=== PATIENT | female | born 1955 | race Caucasian/White ===

== ENCOUNTER 2017-01-13 17:14 | Inpatient (IN) | payer MEDICARE, OTHER ==
[~2017-01-13] VITALS: Ht 162.6 cm; Wt 135.8 kg
[~2017-01-13 17:14] MED LIST: ASPIRIN CHEWABL81 MG PO; BUTALBITAL-ASA1 EACH PO; CATAPRES 0.1MG0.1 MG PO; CLARITIN 10MG T10 MG PO; COLACE100 MG PO; DILTIAZEM 24HR120 M1 PO; DULOXETINE HCL60 MG PO; ESSENTIAL DAIL1 EACH PO; FERROUS SULFAT325 M1 PO; HYDRALAZINE HCL50 MG PO; LEVAQUIN500 MG PO; LEVEMIR FL100 UNIT/1 SQ; LEVOTHYROXINE100 MCG PO; LEVOTHYROXINE125 MCG PO; LIPITOR TAB 2020 MG PO; LISINOPRIL5 MG PO; MECLIZINE HCL25 MG PO; MONTELUKAST SOD10 MG PO; NEURONTIN 300300 MG PO; OXYCODONE HCL10 MG PO; PHENERGAN 25 MG25 M1 PO; PROMETHAZINE HC25 M1 PO; PROTONIX40 MG PO; TRAZODONE HCL50 MG PO
[2017-01-13 18:39] LABS: RED BLOOD COUNT 2.87 M/UL (4.00-5.10); WHITE BLOOD COUNT 11.9 K/UL (4.5-11.0)
[2017-01-14] MEDS ORDERED: CALCIUM ACETAT667 MG PO (02:34)
[2017-01-14] MEDS ORDERED: CARTIA XT240 MG PO (02:36)
[2017-01-14] MEDS ORDERED: CATAPRES TTS P TOP (02:38)
[2017-01-14] MEDS ORDERED: NEURONTIN 100100 MG PO (02:41)
[2017-01-14] MEDS ORDERED: LINZESS290 MCG PO (02:51)
[2017-01-14] MEDS ORDERED: NOVOLOG100 UNIT/1 SC (02:54)
[2017-01-14] MEDS ORDERED: OXYCODONE-ACET1 EACH PO (02:58)
[2017-01-14] MEDS ORDERED: SYMBICORT 160-1 INHA INH (03:00)
[2017-01-14] MEDS ORDERED: PROAIR HFA8.5 GM INH (03:04)
[2017-01-14 04:14] LABS: HEMOGLOBIN 7.9 gm/dl (12.3-15.3); RED BLOOD COUNT 2.85 M/UL (4.00-5.10); WHITE BLOOD COUNT 10.9 K/UL (4.5-11.0)
[2017-01-14] MEDS ORDERED: FLONASE 0.05% N16 GM (05:07)
[2017-01-14 10:00] LABS: ACINETOBACTER BAUMANNII Not Detected (Negative); CANDIDA ALBICANS Not Detected (Negative); CANDIDA KRUSEI Not Detected (Negative); CANDIDA TROPICALIS Not Detected (Negative); ENTEROCOCCUS Not Detected (Negative); ESCHERICHIA COLI Not Detected (Negative); HAEMOPHILUS INFLUENZAE Not Detected (Negative); KLEBSIELLA OXYTOCA Not Detected (Negative); KLEBSIELLA PNEUMONIAE Not Detected (Negative); KPC-CARBAPENEM-RESISTANCE GENE Not Detected (Negative); PROTEUS Not Detected (Negative); PSEUDOMONAS AERUGINOSA Not Detected (Negative); SERRATIA MARCESANS Not Detected (Negative); STREP AGALACTIAE (GROUP B) Not Detected (Negative); STREP PYOGENES (GROUP A) Not Detected (Negative); STREPTOCOCCUS Not Detected (Negative); vanA/B (VANCOMYCIN RESIST GENE Not Detected (Negative)
[2017-01-14 11:12] LABS: STAPHYLOCOCCUS DETECTED (Negative); STAPHYLOCOCCUS AUREUS DETECTED (Negative); mecA (METHICILLIN RESIST GENE DETECTED (Negative)
--- NOTE | 2017-01-16 12:52 | NUR ---
RECEIVED REPORT PATIENT AMBULATE WHEN SHE HAD SHOWER THIS MORNING. APPEARS PATIENT EWELINA WELL
--- NOTE | 2017-01-17 10:26 | NUR ---
RECEIVED REPORT UNABLE TO PERFORM ENEIDA PROCEDURE TODAY, PATIENT WILL RESUME DIET @ 11 AM. PATIENT KNOWLEDGEABLE OF THE NPO UNTIL 11 AM, LAYING IN BED AWAKE AND ALERT, 02 2L IN PLACED SAT 97 %, VITALS SIGN WNL. DENIES PAIN AT THIS TIME
--- NOTE | 2017-01-17 10:28 | NUR ---
NOTIFIED OR C/O RODDY R/T ANESTHESIOLOGIST. VERB WILL RELAY MESSAGE TO DR. WANG
[2017-01-18 05:06] LABS: HEMOGLOBIN 7.6 gm/dl (12.3-15.3); RED BLOOD COUNT 2.72 M/UL (4.00-5.10); WHITE BLOOD COUNT 9.7 K/UL (4.5-11.0)
--- NOTE | 2017-01-18 08:09 | NUR ---
NO VANC LEVEL NOT AVAILABLE, SPOKEN WITH PHARMACIST AND REORDER VANC LEVEL DUE TODAY
--- NOTE | 2017-01-18 11:58 | NUR ---
PATIENT BACK ON THE FLOOR AT 1114, SLEEPY BUT EASLIY AROUSABLE, OPEN EYES WHEN SPOKEN TO, ORIENTED X 3.
[2017-01-19 04:39] LABS: WHITE BLOOD COUNT 9.3 K/UL (4.5-11.0)
[2017-01-19 04:48] LABS: RED BLOOD COUNT 2.44 M/UL (4.00-5.10)
[2017-01-20 14:40] LABS: HEMOGLOBIN 7.4 gm/dl (12.3-15.3); RED BLOOD COUNT 2.64 M/UL (4.00-5.10); WHITE BLOOD COUNT 10.8 K/UL (4.5-11.0)
[2017-01-21 07:17] LABS: HEMOGLOBIN 7.1 gm/dl (12.3-15.3); RED BLOOD COUNT 2.51 M/UL (4.00-5.10); WHITE BLOOD COUNT 11.2 K/UL (4.5-11.0)
[2017-01-22 07:34] LABS: RED BLOOD COUNT 2.42 M/UL (4.00-5.10); WHITE BLOOD COUNT 10.1 K/UL (4.5-11.0)
[2017-01-22 07:38] LABS: HEMOGLOBIN 6.9 gm/dl (12.3-15.3)
[2017-01-22 16:41] LABS: HEMOGLOBIN 7.6 gm/dl (12.3-15.3); WHITE BLOOD COUNT 9.7 K/UL (4.5-11.0)
[2017-01-22 16:42] LABS: RED BLOOD COUNT 2.7 M/UL (4.00-5.10)
[2017-01-23 04:48] LABS: HEMOGLOBIN 7.6 gm/dl (12.3-15.3); RED BLOOD COUNT 2.7 M/UL (4.00-5.10); WHITE BLOOD COUNT 9.2 K/UL (4.5-11.0)
[2017-01-23 17:24] LABS: ADENOVIRUS F 40/41 Not Detected (Negative); ASTROVIRUS Not Detected (Negative); CAMPYLOBACTER Not Detected (Negative); CLOSTRIDIUM DIFFICILE TOX A/B Not Detected (Negative); CRYPTOSPORIDIUM Not Detected (Negative); E.COLI 0157 Not Detected (Negative); ENTAMOEBA HISTOLYTICA Not Detected (Negative); ENTEROAGGREGATIVE E.COLI (EAEC Not Detected (Negative); ENTEROTOXIGENIC E.COLI (ETEC) Not Detected (Negative); GIARDIA LAMBLIA Not Detected (Negative); NOROVIRUS GI/GII Not Detected (Negative); PLESIOMONAS SHIGELLOIDES Not Detected (Negative); ROTOVIRUS A Not Detected (Negative); SALMONELLA Not Detected (Negative); SAPOVIRUS Not Detected (Negative); SHIG/ENTEROINVAS.ECOLI (EIEC) Not Detected (Negative); SHIGA-LIK TOX.PRO.E.COLI (STEC Not Detected (Negative); VIBRIO Not Detected (Negative); VIBRIO CHOLERAE Not Detected (Negative); YERSINIA ENTEROCOLITICA Not Detected (Negative)
--- NOTE | 2017-01-23 18:48 | NUR ---
DR. LA MADE HIS ROUNDS EARLIER AND AWARE OF ABNORMAL LAB VALUES.
--- NOTE | 2017-01-23 18:49 | NUR ---
DR. DAY WAS MAKING ROUNDS AND REPORTED PATIENT LABS AND CONDITION.
[2017-01-24 04:19] LABS: RED BLOOD COUNT 2.5 M/UL (4.00-5.10); WHITE BLOOD COUNT 8.2 K/UL (4.5-11.0)
[2017-01-24 11:26] LABS: ENTEROPATHOGENIC E.COLI (EPEC) DETECTED (Negative)
[2017-01-25 06:06] LABS: HEMOGLOBIN 8.2 gm/dl (12.3-15.3)
[2017-01-27] MEDS ORDERED: LACTINEX TABLET1 EA PO (17:23)
== END 2017-01-27 18:47 | disposition home or self-care (01) | DRG 871 ==
LOC: ER1 17:14 → MED SURG 4 21:50 → ZEROF 21:50 → MED SURG 4 01-14 01:08
PROVIDERS: Emergency Medicine; Family Medicine; Internal Medicine; Internal Medicine Nephrology; ADMIT Internal Medicine
PROC: 5A1D60Z (ICD-10-PCS; 2017-01-15)
PROC: B246ZZ4 Ultrasonography of Right and Left Heart, Transesophageal (ICD-10-PCS; principal; 2017-01-18)
PROC: 30233H1 Transfusion of Nonautologous Whole Blood into Peripheral Vein, Percutaneous Approach (ICD-10-PCS; 2017-01-22)
PROC: 30233H1 Transfusion of Nonautologous Whole Blood into Peripheral Vein, Percutaneous Approach (ICD-10-PCS; 2017-01-24)
DX: A41.02 Sepsis due to Methicillin resistant Staphylococcus aureus (principal); N18.6 End stage renal disease; I50.32 Chronic diastolic (congestive) heart failure; Z68.41 Body mass index [BMI] 40.0-44.9, adult; I12.0 Hypertensive chronic kidney disease with stage 5 chronic kidney disease or end stage renal disease; R74.9 Abnormal serum enzyme level, unspecified; Z99.2 Dependence on renal dialysis; E11.22 Type 2 diabetes mellitus with diabetic chronic kidney disease; M10.9 Gout, unspecified; E78.5 Hyperlipidemia, unspecified; E03.9 Hypothyroidism, unspecified; E11.40 Type 2 diabetes mellitus with diabetic neuropathy, unspecified; K21.9 Gastro-esophageal reflux disease without esophagitis; K52.9 Noninfective gastroenteritis and colitis, unspecified; E66.9 Obesity, unspecified; H91.92 Unspecified hearing loss, left ear; E66.01 Morbid (severe) obesity due to excess calories; D63.1 Anemia in chronic kidney disease; E87.6 Hypokalemia; K59.09 Other constipation; D64.89 Other specified anemias; B37.3 Candidiasis of vulva and vagina; Z86.73 Personal history of transient ischemic attack (TIA), and cerebral infarction without residual deficits; Z90.710 Acquired absence of both cervix and uterus; Z88.8 Allergy status to other drugs, medicaments and biological substances; Z80.1 Family history of malignant neoplasm of trachea, bronchus and lung; Z81.1 Family history of alcohol abuse and dependence; Z79.82 Long term (current) use of aspirin; Z79.4 Long term (current) use of insulin; Z79.899 Other long term (current) drug therapy
CPT/HCPCS: 36415; 71010; 80048; 80053; 80202; 82150; 82270; 82550; 82553; 82962; 83605; 83630; 83690; 83874; 83880; 84132; 84484; 85014; 85018; 85025; 85027; 86850; 86900; 86901; 86920; 87040; 87077; 87150; 87177; 87186; 87507; 89055; 90935; 90937; 93005; 93312; 93320; 94640; 94664; 96365; 96375; 99285; J0885; J1200; J1644; J2020; J2250; J2310; J2550; J3010; J3370; J7030; J7040; J7050; J7070; P9016